=== PATIENT | female | born 1985 | race Caucasian/White ===

== ENCOUNTER 2023-04-01 16:31 | Emergency (ER) | payer BC ==
[2023-04-01 19:35] LABS: SARS-CoV-2 Antigen Rapid Res Negative (Negative)
--- NOTE | 2023-04-01 20:38 | ER ---
Nurse's Notes [facility] Name: Natasha Martino Age: 38 yrs Sex: Female : 1985 Arrival Date: 04/01/2023 Time: 16:31 Bed IW4 Private MD: Diagnosis: Cough;Otitis media, unspecified, bilateral Presentation: 04/01 17:45 Chief complaint: Patient states: Cough, SOB, vomiting, Nausea \T\ sore throat for the iw past 4 days. Coronavirus screen: Vaccine status: Patient reports receiving the 2nd dose of the covid vaccine. Date January 21, 2022 Client denies travel out of the [place] in the last 14 days. Client presents with at least one sign or symptom that may indicate coronavirus-19. Standard/surgical mask placed on the client. Ebola Screen: No symptoms or risks identified at this time. Initial Sepsis Screen: Does the patient meet any 2 criteria? No. Patient's initial sepsis screen is negative. Does the patient have a suspected source of infection? No. Patient's initial sepsis screen is negative. Risk Assessment: Do you want to hurt yourself or someone else? Patient reports no desire to harm self or others. Onset of symptoms was March 27, 2023. 17:45 Method Of Arrival: Ambulatory iw 17:45 Acuity: RAMANA 4 iw - Immunization history:: Adult Immunizations up to date. - Social history:: Smoking status: unknown. Screenin:30 [facility] ED Fall Risk Assessment (Adult) History of falling in the last 3 months, pf1 including since admission No falls in past 3 months (0 pts) Confusion or Disorientation No (0 pts) Intoxicated or Sedated No (0 pts) Impaired Gait No (0 pts) Mobility Assist Device Used No (0 pt) Altered Elimination No (0 pt) Score/Fall Risk Level 0 - 2 = Low Risk Oriented to surroundings, Maintained a safe environment, Educated pt \T\ family on fall prevention, incl call for assistance when getting out of bed, Assessed \T\ reinforced patient's understanding of fall precautions, Provided non-skid footwear, Hourly rounding (assess needs \T\ fall precautionary measures) done, Used ambulatory aids as needed (educated on \T\ assisted with), Used gait belt as appropriate. 19:30 Abuse screen: Denies threats or abuse. Nutritional screening: No deficits noted. pf1 Tuberculosis screening: No symptoms or risk factors identified. Assessment: 19:30 General: Appears in no apparent distress. comfortable, well groomed, well developed, pf1 Behavior is calm, cooperative, appropriate for age, quiet. 19:30 Pain: Complains of pain in sore throat. Neuro: No deficits noted. Level of pf1 Consciousness is awake, alert, obeys commands, Oriented to person, place, time, situation. Cardiovascular: Reports nausea, shortness of breath, vomiting, Capillary refill < 3 seconds Patient's skin is warm and dry. Respiratory: Reports shortness of breath cough that is Airway is patent Respiratory effort is even, unlabored, Respiratory pattern is regular, symmetrical, Breath sounds are clear bilaterally. GI: Reports nausea, vomiting. : No deficits noted. No signs and/or symptoms were reported regarding the genitourinary system. EENT: Reports pain in sore throat. Derm: No deficits noted. No signs and/or symptoms reported regarding the dermatologic system. Vital Signs: 17:45 BP 112 / 86; Pulse 81; Resp 20; Temp 98.4; Pulse Ox 100% on R/A; iw 20:00 BP 118 / 72; Pulse 75; Resp 18; Pulse Ox 99% on R/A; pf1 ED Course: 16:43 Patient arrived in ED. am2 17:18 Ricardo Cosme PA is PHCP. cp 17:18 Ricardo García MD is Attending Physician. cp 17:48 Triage completed. iw 18:53 SARS RAPID Sent. os 18:53 Influenza Screen (a \T\ B) Sent. os 18:53 Strep Sent. os 19:00 Patient has correct armband on for positive identification. pf1 19:00 Arm band placed on right wrist. pf1 20:48 Patient did not have IV access during this emergency room visit. pf1 20:48 No provider procedures requiring assistance completed. pf1 Administered Medications: 18:52 Drug: Tessalon Perle PO 200 mg Route: PO; os 20:03 Follow up: Response: No adverse reaction os 18:53 Drug: Ondansetron PO 4 mg Route: PO; os 20:03 Follow up: Response: No adverse reaction os Medication: 20:00 VIS not applicable for this client. pf1 Outcome: 20:37 Discharge ordered by . cp 20:48 Discharged to home ambulatory, with family. pf1 20:48 Condition: improved 20:48 Discharge instructions given to patient, Instructed on discharge instructions, follow up and referral plans. Demonstrated understanding of instructions, follow-up care, medications, Prescriptions given X 4. 20:49 Patient left the ED. pf1 Signatures: Sienna Pearson RN RN iw Ricardo Cosme PA PA cp Moreno, Amanda am2 Lauren Leach RN RN pf1 Tuan Easton RN RN os Corrections: (The following items were deleted from the chart) 04/02 05:37 05:37 Patient did not have IV access during this emergency room visit. pf1 pf1
--- NOTE | 2023-04-01 20:38 | EDPHYS ---
Physician Documentation [facility] Name: Natasha Martino Age: 38 yrs Sex: Female : 1985 Arrival Date: 04/01/2023 Time: 16:31 Bed IW4 Private MD: ED Physician Ricardo García HPI: 04/01 18:15 This 38 yrs old Female presents to ER via Ambulatory with complaints of Breathing cp Difficulty, Cough, Nausea. 18:15 The patient has shortness of breath with light activity. Onset: The symptoms/episode cp began/occurred 4 day(s) ago. Associated signs and symptoms: Pertinent positives: non-productive cough, sore throat. - Immunization history:: Adult Immunizations up to date. - Social history:: Smoking status: unknown. ROS: 18:20 Constitutional: Negative for fever, poor PO intake. cp 18:20 Eyes: Negative for injury, pain, redness, and discharge. cp 18:20 ENT: Positive for ear pain, sore throat. 18:20 Respiratory: Positive for cough, with no reported sputum, shortness of breath, on exertion. 18:20 All other systems are negative. Vital Signs: 17:45 BP 112 / 86; Pulse 81; Resp 20; Temp 98.4; Pulse Ox 100% on R/A; iw 20:00 BP 118 / 72; Pulse 75; Resp 18; Pulse Ox 99% on R/A; pf1 MDM: 17:50 Patient medically screened. [facility] 04/01 17:29 Order name: Strep; Complete Time: 20:11 04/01 17:29 Order name: Influenza Screen (a \T\ B); Complete Time: 20:11 04/01 17:29 Order name: SARS RAPID; Complete Time: 20:11 04/01 19:17 Order name: Throat Culture; Complete Time: 20:11 EDMS Administered Medications: 18:52 Drug: Tessalon Perle PO 200 mg Route: PO; os 20:03 Follow up: Response: No adverse reaction os 18:53 Drug: Ondansetron PO 4 mg Route: PO; os 20:03 Follow up: Response: No adverse reaction os Disposition Summary: 04/01/23 20:37 Discharge Ordered Location: Home cp Problem: new cp Symptoms: have improved cp Condition: Stable cp Diagnosis - Cough cp - Otitis media, unspecified, bilateral cp Followup: cp - With: Private Physician - When: 2 - 3 days - Reason: Recheck today's complaints Discharge Instructions: - Discharge Summary Sheet cp - Otitis Media, Adult cp - Cough, Adult cp Forms: - Medication Reconciliation Form cp - Thank You Letter cp - Antibiotic Education cp - Prescription Opioid Use cp Prescriptions: - Bromfed DM 2-30-10 mg/5 mL Oral syrup - administer 10 milliliter by ORAL route every 4-6 hours as needed for cold cp symptoms; 180 milliliter; Refills: 0, Product Selection Permitted - albuterol sulfate 90 mcg/actuation Inhalation HFA Aerosol Inhaler - inhale 2 puff by INHALATION route every 6 hours administer via ventilator; 1 cp unit; Refills: 0, Product Selection Permitted - Zofran 4 mg Oral Tablet - take 1 tablet by ORAL route every 12 hours As needed; 10 tablet; Refills: 0, cp Product Selection Permitted - Zithromax Z-Petey 250 mg Oral Tablet - take 1 tablet by ORAL route as directed for 5 days Day 1 - take two (2) tablets cp one time. Day 2, 3, 4 , 5 take one (1) tablet once daily.; 6 tablet; Refills: 0, Product Selection Permitted Signatures: Dispatcher [employer] EDRicardo Child MD MD cha Page, Corey, PA PA cp Lauren Leach RN RN pf1 Tuan Easton RN RN os
[2023-04-01 21:16] VITALS: BP 112/86; TEMP 98.4; O2SAT 100
== END 2023-04-01 20:49 | disposition home or self-care (01) ==
LOC: ER 16:31
DX: R05.9 Cough, unspecified (principal); H66.93 Otitis media, unspecified, bilateral; Z20.822 Contact with and (suspected) exposure to COVID-19
CPT/HCPCS: 36415; 87070; 87081; 87804; 87811; 99283

== ENCOUNTER → 2023-10-05 | Emergency (ER) | payer BC ==
--- OUTSIDE RECORDS SUMMARY | 2023-10-05 22:58 | XMS REPORT | Continuity of Care Document ---
Author Name Unknown Address [address] [facility]. [address] thconnect Address [address] [facility] 1 [address] [place] [address] Care Team Providers Care Freight Broker Name Role Phone System, Pcp Not In Primary Care Physician PETER Lyn Attending Clinician PETER Lyn Attending Clinician Tabby kate Doctor Unassigned, [place] Attending Clinician U Jonas Laird Attending Clinician Unavailable Payers Payer Name Policy Type Policy Number Effective Date Expirati on Date Source [facility] [id number] 2022 00:00:00 Allergies, Adverse Reactions, Alerts Allergy Name Allergy Type Status Severity Reaction(s) Onset Date Inactive Date Treating Clinician Comments Source NO KNOWN ALLERGIE S Drug Class Active [facility] Social History Social Habit Start Date Stop Date Quantity Comments Source [facility] Alcohol intake 2023-08-10 00:00:00 2023-08-10 00:00:00 Current drinker of alcohol (finding) [facility] History of Social function 2023-08-10 00:00:00 2023-08-10 00:00:00 [facility] Tobacco use and exposure 2023-06-08 00:00:00 2023-06-08 00:00:00 Smokeless tobacco non-user [facility] Alcohol Comment 2023-06-08 00:00:00 2023-06-08 00:00:00 occasionally [facility] Sex Assigned At 1985 00:00:00 1985 00:00:00 [facility] Smoking Status Start Date Stop Date Source Never smoked tobacco [facility] Medications Ordered Medication Name Filled Medication Name Start Date Stop Date Current Medication? Ordering Clinician Indication Dosage Frequency Signature (SIG) Comments Components Source metformin ER 500 mg 24 hr tablet 2022-10 00:00: 00 Yes [facility] metformin ER 500 mg 24 hr tablet 2022-10 00:00: 00 Yes [facility] metformin ER 500 mg 24 hr tablet 2022-10 00:00: 00 Yes [facility] metformin ER 500 mg 24 hr tablet 2022-10 00:00: 00 Yes [facility] ALBUTEROL INHALE 06-08 13:53: 17 Yes Inhale. [facility] ALBUTEROL INHALE 06-08 13:53: 17 Yes Inhale. [facility] ALBUTEROL INHALE 06-08 13:53: 17 Yes Inhale. [facility] ALBUTEROL INHALE 06-08 13:53: 17 Yes Inhale. [facility] ALBUTEROL INHALE 06-08 13:53: 17 Yes Inhale. [facility] ALBUTEROL INHALE 06-08 13:53: 17 Yes Inhale. [facility] Vital Signs Vital Name Observation Time Observation Value Comments S gregorio Systolic blood pressure 2023-08-10 20:17:00 129 mm[Hg] [facility] Diastolic blood pressure 2023-08-10 20:17:00 81 mm[Hg] [facility] Heart rate 2023-08-10 20:17:00 73 /min [facility] Body temperature 2023-08-10 20:17:00 36.67 Carissa [facility] Respiratory rate 2023-08-10 20:17:00 16 /min [facility] Body height 2023-08-10 20:17:00 152.4 cm [facility] Body weight 2023-08-10 20:17:00 112.401 kg [facility] BMI 2023-08-10 20:17:00 48.40 kg/m2 [facility] Oxygen saturation in Arterial blood by Pulse oximetry 2023-08-10 20:17:00 97 /min [facility] Systolic blood pressure 2023-06-08 18:52:00 121 mm[Hg] [facility] Diastolic blood pressure 2023-06-08 18:52:00 86 mm[Hg] [facility] Heart rate 2023-06-08 18:52:00 73 /min [facility] Body temperature 2023-06-08 18:52:00 36.72 Carissa [facility] Respiratory rate 2023-06-08 18:52:00 18 /min [facility] Body height 2023-06-08 18:52:00 152.4 cm [facility] Body weight 2023-06-08 18:52:00 116.438 kg [facility] BMI 2023-06-08 18:52:00 50.13 kg/m2 [facility] Procedures Procedure Date / Time Performed Performing Clinician Source EXTERNAL PROVIDER RECORDS 2023-09-07 06:01:00 Doctor Unassigned, [place] [facility] AUTHORIZATION TO RELEASE PHI TO [facility] 2023-08-10 05:01:00 Doctor Unassigned, [place] [facility] Encounters Start Date/Time End Date/Time Encounter Type Admission Type Attending Clinicians Care Facility Care Department Encounter ID Source 2022-07-07 12:50:43 Outpatient [id number] [facility] 2024-06-13 13:30:00 2024-06-13 13:30:00 Outpatient R PETER ADDISON MARISOL [facility] [id number] [facility] 2023-09-07 00:00:00 2023-09-07 00:00:00 Orders Only Doctor Unassigned, [place] [facility] [id number] [facility] 2023-08-10 16:30:00 2023-08-10 16:30:00 Office Visit Peter Addison [facility] [id number] [facility] 2023-08-10 16:30:00 2023-08-10 15:31:25 Outpatient R FOLEY-YANE S, PETER FOLEY-YANE S, PETER [facility] [id number] [facility] 2023-08-10 00:00:00 2023-08-10 00:00:00 Orders Only Doctor Unassigned, [place] [facility] [id number] [facility] 2023-06-08 13:30:00 2023-06-08 14:07:37 Office Visit Peter Addison [facility] [id number] [facility] 2023-06-08 13:30:00 2023-06-08 14:07:37 Outpatient R FOLEY-YANE S, PETER FOLEY-YANE S, PETER [facility] [id number] [facility] 2022-05-04 00:00:00 2022-05-04 00:00:00 Outpatient Jonas Castle Tin W [id number] [facility]
--- NOTE | 2023-10-05 23:49 | ER ---
Nurse's Notes [facility] Name: Natasha Martino Age: 38 yrs Sex: Female : 1985 Arrival Date: 10/05/2023 Time: 22:54 Bed IW2 Private MD: Diagnosis: Cough;Otitis media, unspecified, bilateral;Acute pharyngitis, unspecified Presentation: 10/05 23:12 Chief complaint: Patient states: Cough, congestion, and ear pain onset 1 week ago. Pt cm10 denies fevers. Coronavirus screen: Vaccine status: Patient reports receiving the 2nd dose of the covid vaccine. Client denies travel out of the [place] in the last 14 days. Ebola Screen: Patient denies travel to an Ebola-affected area in the 21 days before illness onset. No symptoms or risks identified at this time. Initial Sepsis Screen: Does the patient meet any 2 criteria? No. Patient's initial sepsis screen is negative. Does the patient have a suspected source of infection? No. Patient's initial sepsis screen is negative. Risk Assessment: Do you want to hurt yourself or someone else? Patient reports no desire to harm self or others. Onset of symptoms was October 05, 2023. 23:12 Method Of Arrival: Ambulatory cm10 23:12 Acuity: RAMANA 4 cm10 Triage Assessment: 10/06 00:07 General: Appears in no apparent distress. comfortable, Behavior is calm, cooperative. cm10 Pain: Complains of pain in left ear and right ear. EENT: Reports pain in left ear and right ear. Neuro: No deficits noted. Level of Consciousness is awake, alert, obeys commands, Oriented to person, place, time, situation, Appropriate for age. Cardiovascular: No deficits noted. Patient's skin is warm and dry. Respiratory: No deficits noted. Airway is patent Respiratory effort is even, unlabored, Respiratory pattern is regular, symmetrical. Musculoskeletal: Range of motion: intact in all extremities. 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 - Social history:: Smoking status: Patient denies any tobacco usage or history of. Screenin/29 00:08 [facility] ED Fall Risk Assessment (Adult) History of falling in the last 3 months, cm10 including since admission No falls in past 3 months (0 pts) Confusion or Disorientation No (0 pts) Intoxicated or Sedated No (0 pts) Impaired Gait No (0 pts) Mobility Assist Device Used No (0 pt) Altered Elimination No (0 pt) Score/Fall Risk Level 0 - 2 = Low Risk Oriented to surroundings, Maintained a safe environment, Hourly rounding (assess needs \T\ fall precautionary measures) done. Abuse screen: Denies threats or abuse. Denies injuries from another. Nutritional screening: No deficits noted. Tuberculosis screening: No symptoms or risk factors identified. Vital Signs: 10/05 23:12 BP 129 / 76; Pulse 81; Resp 18 S; Temp 97.7(O); Pulse Ox 98% on R/A; Weight 108.86 kg; cm10 Height 5 ft. 0 in. ; Pain 4/10; 23:12 Body Mass Index 46.87 (108.86 kg, 152.4 cm) cm10 23:12 Pain Scale: Adult cm10 ED Course: 23:06 Patient arrived in ED. gm2 23:13 Triage completed. cm10 23:14 Arm band placed on Patient placed in waiting room. cm10 23:24 Nancy Garnica PA-C is PHCP. sb4 23:24 Ricardo García MD is Attending Physician. sb4 23:31 PHCP role handed off by Nancy Garnica PA-C cp 23:31 Ricardo Cosme PA is PHCP. cp 10/06 00:08 Patient has correct armband on for positive identification. Provided Education on: ER cm10 process and procedures. . 00:09 No provider procedures requiring assistance completed. Patient did not have IV access cm10 during this emergency room visit. Administered Medications: No medications were administered Medication: 00:08 VIS not applicable for this client. cm10 Outcome: 10/05 23:49 Discharge ordered by . cp 10/06 00:09 Discharged to home ambulatory, cm10 Condition: good Discharge instructions given to patient, Instructed on discharge instructions, follow up and referral plans. medication usage, Demonstrated understanding of instructions, follow-up care, medications, Prescriptions given X 3, 00:09 Patient left the ED. cm10 Signatures: Ricardo Cosme PA PA cp Brown, Sophia, PA-C PA-C sb4 Josi Rene, RN RN cm10 Allison Brannon 2
--- NOTE | 2023-10-05 23:49 | EDPHYS ---
Physician Documentation [facility] Name: Natasha Martino Age: 38 yrs Sex: Female : 1985 Arrival Date: 10/05/2023 Time: 22:54 Bed IW2 Private MD: ED Physician Ricardo García HPI: 10/05 23:39 This 38 yrs old Female presents to ER via Ambulatory with complaints of Ear Pain, cp Cough, Congestion. 23:39 The patient presents with pain, that is acute. The complaints affect the right ear and cp left ear. Associated signs and symptoms: Pertinent positives: cough, congestion, sore throat with symptoms times 1 week, rhinorrhea, Pertinent negatives: fever, shortness of breath, vomiting, diarrhea. Severity of symptoms: in the emergency department the symptoms are unchanged despite home interventions. 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 - Social history:: Smoking status: Patient denies any tobacco usage or history of. ROS: 23:40 Constitutional: Negative for body aches, chills, fever, poor PO intake, cp 23:40 Eyes: Negative for injury, pain, redness, and discharge, cp 23:40 ENT: Positive for ear pain, sinus congestion, sinus pain, sore throat, Negative for drainage from ear(s), difficulty swallowing, difficulty handling secretions, 23:40 Cardiovascular: Negative for chest pain, 23:40 Respiratory: Positive for cough, Negative for shortness of breath, wheezing, 23:40 Abdomen/GI: Negative for abdominal pain, vomiting, diarrhea, constipation, 23:40 Skin: Negative for rash, 23:40 Neuro: Negative for headache, 23:40 All other systems are negative, Exam: 23:45 Constitutional: The patient appears in no acute distress, alert, awake, non-toxic, well cp developed, well nourished, 23:45 Head/Face: Normocephalic, atraumatic. cp 23:45 Eyes: Periorbital structures: appear normal, Conjunctiva: normal, no exudate, no injection, Lids and lashes: appear normal, bilaterally, 23:45 ENT: External ear(s): are unremarkable, Ear canal(s): are normal, clear, TM's: bulging, is not appreciated, bilaterally, erythema, that is moderate, bilaterally, Nose: nasal drainage, that is minimal, Mouth: Lips: moist, Oral mucosa: moist, Posterior pharynx: Airway: no evidence of obstruction, patent, swelling, is not appreciated, erythema, that is mild, exudate, is not appreciated, 23:45 Neck: ROM/movement: is normal, is supple, without pain, no range of motions limitations, no meningismus, 23:45 Chest/axilla: Inspection: normal, 23:45 Cardiovascular: Rate: normal, Rhythm: regular, cp 23:45 Respiratory: the patient does not display signs of respiratory distress, Respirations: cp normal, no use of accessory muscles, no retractions, labored breathing, is not present, Breath sounds: stridor, is not appreciated, + upper airway congestion. wheezing: is not appreciated, 23:45 Abdomen/GI: Exam negative for discomfort, distension, Inspection: abdomen appears normal, 23:45 Neuro: Orientation: to person, place \T\ time. Mentation: is normal, Vital Signs: 23:12 BP 129 / 76; Pulse 81; Resp 18 S; Temp 97.7(O); Pulse Ox 98% on R/A; Weight 108.86 kg; cm10 Height 5 ft. 0 in. ; Pain 4/10; 23:12 Body Mass Index 46.87 (108.86 kg, 152.4 cm) cm10 23:12 Pain Scale: Adult cm10 MDM: 23:24 Patient medically screened. sb4 23:40 Differential diagnosis: otitis media, otitis externa, ruptured TM, cerumen impaction, cp strep throat, pneumonia, influenza. 23:49 Data reviewed: vital signs, nurses notes, and as a result, I will discharge patient. cp 23:49 Counseling: I had a detailed discussion with the patient and/or guardian regarding the cp historical points, exam findings, and any diagnostic results supporting the discharge/admit diagnosis, the need for outpatient follow up, a family practitioner, to return to the emergency department if symptoms worsen or persist or if there are any questions or concerns that arise at home. Administered Medications: No medications were administered Disposition Summary: 10/05/23 23:49 Discharge Ordered Notes: Location: Home cp Problem: new cp Symptoms: are unchanged cp Condition: Stable cp Diagnosis - Cough cp - Otitis media, unspecified, bilateral cp - Acute pharyngitis, unspecified cp Followup: cp - With: Private Physician - When: 2 - 3 days - Reason: Worsening of condition Discharge Instructions: - Discharge Summary Sheet cp - Otitis Media, Adult cp - Sore Throat cp - Cool Mist Vaporizer cp - Cough, Adult cp Forms: - Medication Reconciliation Form cp - Thank You Letter cp - Antibiotic Education cp - Prescription Opioid Use cp - Patient Portal Instructions cp - Leadership Thank You Letter cp Prescriptions: - Bromfed DM 2-30-10 mg/5 mL Oral syrup - administer 10 milliliter ORAL route every 6 hours as needed for cold symptoms; cp 240 milliliter; Refills: 0, Product Selection Permitted - Zithromax Z-Petey 250 mg Oral Tablet - take 1 tablet ORAL route as directed for 5 days Day 1 - take two (2) tablets cp one time. Day 2, 3, 4 , 5 take one (1) tablet once daily.; 6 tablet; Refills: 0, Product Selection Permitted - Medrol (Petey) 4 mg Oral Tablets, Dose Pack - take 1 tablet ORAL route as directed - follow package instructions; 1 packet; cp Refills: 0, Product Selection Permitted Signatures: Ricardo Cosme PA PA cp Brown, Sophia, PA-C PAZelalem sb4 Josi Rene, RN RN cm10 Corrections: (The following items were deleted from the chart) 10/06 23:55 10/05 23:30 Differential diagnosis: otitis media, otitis externa, ruptured TM, cerumen cp impaction, strep throat, pneumonia, influenza cp
[2023-10-06 06:19] VITALS: BP 129/76; TEMP 97.7; O2SAT 98
== END ==
LOC: ER 22:54
DX: R05.9 Cough, unspecified (principal); H66.93 Otitis media, unspecified, bilateral; J02.9 Acute pharyngitis, unspecified
CPT/HCPCS: 99283

== ENCOUNTER 2024-07-27 22:42 | Emergency (ER) | payer BC ==
--- OUTSIDE RECORDS SUMMARY | 2024-07-27 22:48 | XMS REPORT | Continuity of Care Document ---
Author Name Unknown Address [address] [facility]. [address] th[address] Address [address] [facility] 1 [address] [place] [address] Care Team Providers Care Litigation Attorney Name Role Phone Pcp, Patient Does Not Have A Primary Care Physic tenzin PETER FRIEDMAN Attending Clinician PETER Galicia Attending Clinician Peter Galicia MD Attending Clinician [phone], [facility] Attending Clinician Unavailable Doctor Unassigned, Tullos Attending Clinician U Jonas Laird Attending Clinician Unavailable Payers Payer Name Policy Type Policy Number Effective Date Expirati on Date Source Allergies, Adverse Reactions, Alerts Allergy Name Allergy Type Status Severity Reaction(s) Onset Date Inactive Date Treating Clinician Comments Source NO KNOWN ALLERGIE S Drug Class Active [facility] Social History Social Habit Start Date Stop Date Quantity Comments Source [facility] Alcoholic beverage intake 2024-06-13 00:00:00 2024-06-13 00:00:00 Current drinker of alcohol (finding) [facility] History of Social function 2024-06-11 00:00:00 2024-06-11 00:00:00 [facility] Alcohol intake 2023-08-10 00:00:00 2023-08-10 00:00:00 Current drinker of alcohol (finding) [facility] Tobacco use and exposure 2023-06-08 00:00:00 2023-06-08 00:00:00 Smokeless tobacco non-user [facility] Alcohol Comment 2023-06-08 00:00:00 2023-06-08 00:00:00 occasionally [facility] Sex assigned at 1985 00:00:00 1985 00:00:00 [facility] Smoking Status Start Date Stop Date Source Never smoked tobacco [facility] Medications Ordered Medication Name Filled Medication Name Start Date Stop Date Current Medication? Ordering Clinician Indication Dosage Frequency Signature (SIG) Comments Components Source metformin ER 500 mg 24 hr tablet 2022-10 00:00: 00 06-13 00:00 :00 No [facility] ALBUTEROL INHALE 06-08 13:53: 17 Yes Inhale. [facility] Vital Signs Vital Name Observation Time Observation Value Comments S gregorio Systolic blood pressure 2024-06-13 18:38:00 114 mm[Hg] [facility] Diastolic blood pressure 2024-06-13 18:38:00 89 mm[Hg] [facility] Heart rate 2024-06-13 18:38:00 82 /min Un[facility] Respiratory rate 2024-06-13 18:38:00 18 /min [facility] Body height 2024-06-13 18:38:00 152.4 cm [facility] Body weight 2024-06-13 18:38:00 117.482 kg [facility] BMI 2024-06-13 18:38:00 50.58 kg/m2 [facility] Systolic blood pressure 2023-08-10 20:17:00 129 mm[Hg] [facility] Diastolic blood pressure 2023-08-10 20:17:00 81 mm[Hg] [facility] Heart rate 2023-08-10 20:17:00 73 /min Unive [facility] Body temperature 2023-08-10 20:17:00 36.67 Carissa [facility] Respiratory rate 2023-08-10 20:17:00 16 /min [facility] Body height 2023-08-10 20:17:00 152.4 cm [facility] Body weight 2023-08-10 20:17:00 112.401 kg [facility] BMI 2023-08-10 20:17:00 48.40 kg/m2 [facility] Oxygen saturation in Arterial blood by Pulse oximetry 2023-08-10 20:17:00 97 /min [facility] Systolic blood pressure 2023-06-08 18:52:00 121 mm[Hg] [facility] Diastolic blood pressure 2023-06-08 18:52:00 86 mm[Hg] [facility] Heart rate 2023-06-08 18:52:00 73 /min [facility] Body temperature 2023-06-08 18:52:00 36.72 Carissa [facility] Respiratory rate 2023-06-08 18:52:00 18 /min [facility] Body height 2023-06-08 18:52:00 152.4 cm [facility] Body weight 2023-06-08 18:52:00 116.438 kg [facility] BMI 2023-06-08 18:52:00 50.13 kg/m2 [facility] Procedures Procedure Date / Time Performed Performing Clinician Source EXTERNAL PROVIDER RECORDS 2023-09-07 06:01:00 Doctor Unassigned, Tullos [facility] AUTHORIZATION TO RELEASE PHI TO [facility] 2023-08-10 05:01:00 Doctor Unassigned, Tullos [facility] Encounters Start Date/Time End Date/Time Encounter Type Admission Type Attending Clinicians Care Facility Care Department Encounter ID Source 2022-07-07 12:50:43 Outpatient CHW CHW [id number] [facility] 2024-06-24 00:00:00 2024-06-24 13:42:24 Patient Secure Msg Peter Addison [facility] [id number] [id number] [id number] [facility] 2024-06-13 14:15:00 2024-06-13 14:30:00 Sole Tier Visit 2, [facility] Peter Addison 2, Adc Lab [facility] [id number] 350.1.13.10 [id number] [id number] [facility] 2024-06-13 13:30:00 2024-06-13 13:58:39 Outpatient R FOLEY-YANE S, PETER FOLEY-YANE S, PETER [facility] [id number] [facility] 2024-06-13 13:30:00 2024-06-13 13:58:39 Office Visit Sergio sZhanePeter [facility] [id number] [id number] [id number] [id number] [facility] 2023-09-07 00:00:00 2023-09-07 00:00:00 Orders Only Doctor Unassigned, Tullos [facility] 1.20.114 350.1.13.10 [id number] [id number] [facility] 2023-08-10 16:30:00 2023-08-10 16:30:00 Office Visit Peter Addison [facility] [id number] [id number] [id number] [id number] [facility] 2023-08-10 16:30:00 2023-08-10 15:31:25 Outpatient R FOLEY-YANE S, PETER FOLEY-YANE S, PETER [facility] [id number] [facility] 2023-08-10 00:00:00 2023-08-10 00:00:00 Orders Only Doctor Unassigned, Tullos [facility] [id number] 350.1.13.10 [id number] [id number] [facility] 2023-06-08 13:30:00 2023-06-08 14:07:37 Office Visit Peter Addison [facility] [id number] [id number] [id number] [id number] [facility] 2023-06-08 13:30:00 2023-06-08 14:07:37 Outpatient R PETER ADDISON MARISOL [facility] [id number] [facility] 2022-05-04 00:00:00 2022-05-04 00:00:00 Outpatient Jonas Castle [facility] [id number] [facility] Notes Date/Time Note Provider Source 2024-06-13 14:15:00 Images from the original note were not included. Venipuncture collection performed by clean technique on the left anticubitus. Total of 1 attempts were made. Slight pressure and a bandage/dressing were applied to the site(s). The patient experienced no complications. The following specimens were processed according to instructions and sent to [facility] laboratories per lab order on 06/13/2024 : LT BLUE SST 2 RED 1 LAV PPT DK GREEN (LiHep) DK GREEN (SodH) SCHAFFER DK BLUE (K2) DK BLUE (S) ACD Blood Culture NIPT/NTD [facility]
[2024-07-27 23:42] LABS: SARS-CoV-2 Antigen CONTROL BLUE LINE VIS/BG OK; SARS-CoV-2 Antigen Rapid Res Negative (Negative)
[2024-07-27 23:46] LABS: Absolute Basophils 0.1 K/uL (0-0.5); Absolute Eosinophils 0.4 K/uL (0-0.5); Absolute Monocytes 0.5 K/uL (0.1-1.3); Absolute Neutrophil 6.6 K/uL (1.8-8.0); Basophils % 0.9 % (0-1.3); Eosinophils % 4.1 % (0-4.4); Hematocrit 37.8 % (36.0-45.0); Hemoglobin 12.4 g/dL (12.0-15.0); Lymphocytes % 21.1 % (15.3-44.8); MCH 28.7 pg (27.0-35.0); MCHC 32.9 g/dL (32.0-36.0); MCV 87.5 fL (80-100); MPV 8.3 fL (7.6-11.3); Monocytes % 5.3 % (3.3-12.3); Neutrophils % 68.6 % (41.7-73.7); Platelets 240 thou/uL (152-406); RBC Red Blood Cell Count 4.32 M/uL (3.86-4.86); Red Cell Distribution Width 15.1 % (12.1-15.2)
[2024-07-27] MEDS ORDERED: ONDANSETRON 4 MG/2 ML VIAL ONE (23:46)
[2024-07-27] MEDS ORDERED: METOCLOPRAMIDE 10 MG/2mL INJ ONE (23:46)
[2024-07-27] MEDS ORDERED: KETOROLAC 30 MG/ML INJ ONE (23:46)
[2024-07-27] MEDS ORDERED: GUAIFENESIN/DM 5 ML UCUP ONE (23:48)
[2024-07-27] MEDS ORDERED: CODEINE 30MG/APAP 300MG TAB ONE (23:48)
[2024-07-27] MEDS ORDERED: NA CHLORIDE 0.9% 2,000 ML ONE (23:49)
[2024-07-28 00:04] LABS: ALT/SGPT 26 U/L (13-56); AST/SGOT 11 U/L (15-37); Albumin 2.7 g/dL (3.4-5.0); Albumin/Globulin Ratio 0.8 (1.1-1.8); Alkaline Phosphatase 71 U/L (45-117); Anion Gap 7.9 mEq/L (5.0-15.0); BUN Blood Urea Nitrogen 17 mg/dL (7-18); Bicarbonate 29 mEq/L (21-32); Bilirubin Total 0.3 mg/dL (0.2-1.0); Globulin 3.6 g/dL (2.3-3.5); Glomerular Filtration Rate 75 ml/min (=/>90); Glucose Level 122 mg/dL (74-106); Magnesium 2.1 mg/dL (1.6-2.4); NT PRO-BNP 91 pg/mL (<125); Potassium 3.9 mEq/L (3.5-5.1); Protein, Total 6.3 g/dL (6.4-8.2); Sodium Level 138 mEq/L (136-145); Troponin High Sensitivity 3.4 pg/mL (<58.9)
[2024-07-28 00:11] LABS: Bilirubin Direct < 0.2 mg/dL (0-0.2); Bilirubin Indirect, Calculated 0.1 mg/dL (0.2-0.8)
--- NOTE | 2024-07-28 01:05 | RAD REPORT ---
EXAM: XR Chest, 1 View CLINICAL HISTORY: Chest pain. TECHNIQUE: Frontal view of the chest. COMPARISON: No relevant prior studies available. FINDINGS: Lungs: Extensive right lower lobe opacification. Pleural space: Unremarkable. No pneumothorax. Heart: Unremarkable. No cardiomegaly. Mediastinum: Unremarkable. Normal mediastinal contour. Bones/joints: Unremarkable. No acute fracture. IMPRESSION: Right lower lobe infiltrate. Electronically signed by: Sangeetha Thrasher MD 07/28/2024 01:02 AM CDT Transcribed Date/Time: 07/28/2024 1:04 AM
[2024-07-28] MEDS ORDERED: NA CHLORIDE 0.9% 50 ML ONE (03:14)
[2024-07-28] MEDS ORDERED: ALBUTEROL 2.5 MG/3 ML NEB SOL ONE (03:14)
[2024-07-28] MEDS ORDERED: CEFTRIAXONE 1000 MG/VIAL ONE (03:14)
[2024-07-28] MEDS ORDERED: AZITHROMYCIN 250 MG TAB ONE (03:14)
--- NOTE | 2024-07-28 03:56 | EDPHYS ---
Physician Documentation [facility] Name: Natasha Martino Age: 39 yrs Sex: Female : 1985 Arrival Date: 07/27/2024 Time: 22:42 Bed 8 Private MD: ED Physician Julio Reese HPI: 07/27 22:57 This 39 yrs old Female presents to ER via Unassigned with complaints of sp4 Painful Cough, Shortness Of Breath, Dizziness, Congestion. 07/28 22:12 Patient presents with 1 week of shortness of breath cough dizziness congestion and sp4 feeling unwell.. 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 - Infectious Disease History:: Denies. - Social history:: Smoking status: Patient denies any tobacco usage or history of. - Family history:: not pertinent. ROS: 07/28 22:12 Constitutional: Positive generalized weakness, cough, productive cough, shortness of sp4 breath dizziness and congestion. All other systems are negative, Exam: 22:12 Constitutional: This is a well developed, well nourished patient who is awake, alert, sp4 and in no acute distress. Head/Face: Normocephalic, atraumatic. Eyes: Pupils equal round and reactive to light, extra-ocular motions intact. Lids and lashes normal. Conjunctiva and sclera are not injected. Cornea within normal limits. Periorbital areas with no swelling, redness, or edema. ENT: Nares patent. No nasal discharge, no septal abnormalities noted. Tympanic membranes are normal and external auditory canals are clear. Oropharynx with no redness, swelling, or masses, exudates, or evidence of obstruction, uvula midline. Mucous membranes moist. Neck: Trachea midline, no thyromegaly or masses palpated, and no cervical lymphadenopathy. Supple, full range of motion without nuchal rigidity, or vertebral point tenderness. Chest/axilla: Normal chest wall appearance and motion. Nontender with no deformity. No lesions are appreciated. Cardiovascular: Regular rate and rhythm with a normal S1 and S2. No gallops, murmurs, or rubs. Normal PMI, no JVD. No pulse deficits. Respiratory: Lungs have equal breath sounds bilaterally, clear to auscultation and percussion. No rales, rhonchi or wheezes noted. No increased work of breathing, no retractions or nasal flaring. Abdomen/GI: Soft, with normal bowel sounds. No distension or tympany. No guarding or rebound. No evidence of tenderness throughout. Back: No spinal tenderness. No costovertebral tenderness. Skin: Warm, dry with normal turgor. Normal color with no rashes, no lesions, and no evidence of cellulitis. MS/ Extremity: Pulses equal, no cyanosis. Neurovascular intact. Full, normal range of motion. Neuro: Awake and alert, GCS 15, oriented to person, place, time, and situation. Cranial nerves II-XII grossly intact. Motor strength 5/5 in all extremities. Sensory grossly intact. Psych: Awake, alert, with orientation to person, place and time. Behavior, mood, and affect are within normal limits 22:15 ECG was reviewed by the Attending Physician. sp4 Vital Signs: 07/27 22:54 BP 137 / 91; Pulse 103; Resp 16; Temp 98.1(TE); Pulse Ox 96% on R/A; Weight 116.12 kg; dd2 Height 4 ft. 11 in. ; 23:40 BP 107 / 68; Pulse 104; Resp 17 S; Pulse Ox 99% on R/A; ha1 07/28 00:25 BP 115 / 51; Pulse 98; Resp 19 S; Pulse Ox 97% on R/A; ha1 01:30 BP 110 / 55; Pulse 85; Resp 17 S; Pulse Ox 94% on R/A; ha1 02:20 BP 101 / 56; Pulse 76; Resp 17 S; Pulse Ox 96% on R/A; ha1 03:16 BP 113 / 74; Pulse 83; Resp 19 S; Pulse Ox 96% on R/A; ha1 07/27 22:54 Body Mass Index 51.71 (116.12 kg, 149.86 cm) dd2 Buhl Coma Score: 22:12 Eye Response: spontaneous(4). Motor Response: obeys commands(6). Verbal Response: sp4 oriented(5). Total: 15. MDM: 07/27 22:58 Medical Screening Exam initiated sp4 07/28 22:12 Differential Diagnosis: Obstructed Airway Bronchitis Influenza Upper Respiratory sp4 Infection Sinusitis Pharyngitis Otitis Media Pneumonia. Data reviewed: vital signs, nurses notes, lab test result(s), EKG, radiologic studies, plain films. 22:14 Consideration of Admission/Observation Escalation of care including sp4 admission/observation considered. ED course: Patient has right lower lobe infiltrate on the chest x-ray. Probably consolidative pneumonia. Patient was prescribed extended course of cefdinir and Zithromax. Advised breathing treatments at home cough management and follow-up with primary care physician in 2 weeks for repeat chest x-ray to document infiltrate resolution.. 07/27 22:58 Order name: SARS RAPID; Complete Time: 00:45 sp4 07/27 22:58 Order name: Influenza Screen (a \T\ B); Complete Time: 00:45 4 07/27 23:07 Order name: Basic Metabolic Panel; Complete Time: 00:45 4 07/27 23:07 Order name: CBC with Diff; Complete Time: 00:45 sp4 07/27 23:07 Order name: LFT's; Complete Time: 00:45 sp4 07/27 23:07 Order name: Magnesium; Complete Time: 00:45 sp4 07/27 23:07 Order name: NT PRO-BNP; Complete Time: 00:45 sp4 07/27 23:07 Order name: Troponin HS; Complete Time: 00:45 4 07/27 23:07 Order name: XRAY Chest (1 view); Complete Time: 22:14 4 07/27 23:07 Order name: EKG; Complete Time: 23:08 sp4 07/27 23:07 Order name: EKG - Nurse/Tech; Complete Time: 00:06 sp4 07/27 23:07 Order name: IV Saline Lock; Complete Time: 23:32 sp4 07/27 23:07 Order name: Labs collected and sent; Complete Time: 23:32 sp4 07/27 23:07 Order name: O2 Per Protocol; Complete Time: 23:32 sp4 07/27 23:07 Order name: O2 Sat Monitoring; Complete Time: 23:32 sp4 EC/19 23:00 Rate is 70 beats/min. Rhythm is regular, Normal Sinus Rhythm. QRS [place] is Normal. [place] sp4 interval is normal. QRS interval is normal. QT interval is normal. No Q waves. T waves are Normal. No ST changes noted. Clinical impression: Normal ECG. Interpreted by me. Reviewed by me. Administered Medications: 23:45 Drug: NS 0.9% IV 1000 ml IV at 1000 ml once; to be given as a bolus over 60 minutes ha1 Route: IV; Rate: 1000 ml; Site: right antecubital; 07/28 01:30 Follow up: Response: No adverse reaction; IV Status: Completed infusion; IV Intake: ha1 1000ml 07/27 23:45 Drug: NS 0.9% IV 1000 ml IV at 1000 ml once; to be given as a bolus over 60 minutes ha1 Route: IV; Rate: 1000 ml; Site: right antecubital; 07/28 01:30 Follow up: Response: No adverse reaction; IV Status: Completed infusion; IV Intake: ha1 1000ml 07/27 23:45 Drug: Dextromethorphan-Guaifenesin PO Liquid 10 mg-100 mg/5 mL 10 ml PO once Route: PO; [facility] 07/28 00:00 Follow up: Response: No adverse reaction; Marked relief of symptoms [facility] 07/27 23:45 Drug: metoCLOPramide IVP 10 mg IVP once; over 1 to 2 minutes Route: IVP; Site: right [address]; 07/28 00:30 Follow up: Response: No adverse reaction; Marked relief of symptoms [facility] 07/27 23:47 Drug: Ketorolac IVP 30 mg IVP once Route: IVP; Site: right antecubital; [facility] 07/28 00:00 Follow up: Response: No adverse reaction; Marked relief of symptoms [facility] 07/27 23:49 Drug: Ondansetron IVP 4 mg IVP once; over 2 minutes Route: IVP; Site: right antecubital;[facility] 07/28 00:05 Follow up: Response: No adverse reaction; Marked relief of symptoms 00:05 Drug: Acetaminophen-Codeine PO (300 mg-30 mg) 2 tabs PO once; RASS on ADMIN: Combtv4, ha1 Very Agttd3, Agttd2, Rstlss1, AlertClm0, Drwsy-1, Lt Sdtn-2, Mod Sdtn-3, Dp Sdtn-4, UnArsble-5 Route: PO; 00:30 Follow up: Response: No adverse reaction; Marked relief of symptoms; Pain is decreased; ha1 RASS: Alert and Calm (0) 03:28 Drug: Rocephin - Rocephin (cefTRIAXone) IVPB 1 grams IVPB once over 30 mins; (mix in 50 ha1 mL NS) Route: IVPB; Infused Over: 30 mins; Site: right antecubital; 04:06 Follow up: Response: No adverse reaction; IV Status: Completed infusion; IV Intake: [id number] 03:28 Drug: Albuterol Inhalation 2.5 mg Inhalation once Route: Inhalation; ha1 03:40 Follow up: Response: No adverse reaction; Marked relief of symptoms ha1 03:28 Drug: AZITHromycin PO 500 mg PO once Route: PO; ha1 03:40 Follow up: Response: No adverse reaction ha1 Disposition Summary: 07/28/24 03:55 Discharge Ordered Notes: Please see your Doctor for repeat chest X ray in 2 weeks Location: Home sp4 Problem: new sp4 Symptoms: have improved sp4 Condition: Stable sp4 Diagnosis - Other pneumonia, unspecified organism sp4 - Acute right lower lung pneumonia, right lower lung consolidation sp4 Followup: sp4 - With: Private Physician - When: 7 - 10 days - Reason: Recheck today's complaints Discharge Instructions: - Discharge Summary Sheet sp4 - Community-Acquired Pneumonia, Adult sp4 Forms: - Patient Portal Instructions sp4 Prescriptions: - cefdinir 300 mg Oral capsule - take 1 capsule ORAL route every 12 hours for 10 days; 20 capsule; Refills: 0, sp4 Product Selection Permitted - dextromethorphan-guaifenesin 60-1,200 mg Oral Tablet, Extended Release 12 hr - take 1 tablet ORAL route every 12 hours PRN cough; 40 tablet; Refills: 0, sp4 Product Selection Permitted - Albuterol Sulfate 2.5 mg /3 mL (0.083 %) Inhalation Solution for Nebulization - inhale 1 unit NEBULIZATION route every 4 hours As needed Dispense with sp4 Nebulizer and Adult mask, Dispense 50 vials; 50 unit; Refills: 0, Product Selection Permitted - Zithromax Z-Petey 250 mg Oral Tablet - take 1 tablet ORAL route as directed for 5 days Day 1 - take two (2) tablets sp4 one time. Day 2, 3, 4 , 5 take one (1) tablet once daily.; 6 tablet; Refills: 0, Product Selection Permitted - ondansetron 8 mg Oral Tablet,disintegrating - take 1 tablet ORAL route every 8 hours PRN nausea; 30 tablet; Refills: 0, sp4 Product Selection Permitted Signatures: Dispatcher [employer] EDMS Yazmin Taveras RN RN ha1 Julio Reese MD MD sp4 THUAN CALDERON RN RN dd2 Mi Andino RN al5 Corrections: (The following items were deleted from the chart) 07/27 23:08 23:08 BASIC METABOLIC PANEL+C.LAB.BRZ ordered. EDMS EDMS 23:08 23:08 CBC+H.LAB.BRZ ordered. EDMS EDMS 23:08 23:08 HEPATIC FUNCTION+C.LAB.BRZ ordered. EDMS EDMS 23:08 23:08 MAGNESIUM+C.LAB.BRZ ordered. EDMS EDMS 23:08 23:08 PROBNP+C.LAB.BRZ ordered. EDMS EDMS 23:08 23:08 Troponin High Sensitivity+C.LAB.BRZ ordered. EDMS EDMS
--- NOTE | 2024-07-28 03:56 | ER ---
Nurse's Notes [facility] Name: Natasha Martino Age: 39 yrs Sex: Female : 1985 Arrival Date: 07/27/2024 Time: 22:42 Bed 8 Private MD: Diagnosis: Other pneumonia, unspecified organism;Acute right lower lung pneumonia, right lower lung consolidation Presentation: 07/27 22:54 Chief complaint: Patient states: Pt states c/o sore throat, chest pain with cough, and dd2 difficulty taking a deep breath x5-6 days. Coronavirus screen: cough unrelated to allergies, difficulty breathing, sore throat. Ebola Screen: No symptoms or risks identified at this time. Initial Sepsis Screen: Does the patient meet any 2 criteria? No. Patient's initial sepsis screen is negative. Does the patient have a suspected source of infection? No. Patient's initial sepsis screen is negative. Risk Assessment: Do you want to hurt yourself or someone else? Patient reports no desire to harm self or others. Onset of symptoms is unknown. 22:54 Method Of Arrival: Ambulatory dd2 22:54 Acuity: RAMANA 4 dd2 Triage Assessment: 22:59 General: Appears in no apparent distress. Behavior is calm, cooperative, appropriate dd2 for age. Pain: Complains of pain in throat Pain currently is 10 out of 10 on a pain scale. Respiratory: Reports shortness of breath cough that is productive, pain with cough Airway is patent Respiratory effort is even, unlabored, Respiratory pattern is regular, symmetrical, Onset: The symptoms/episode began/occurred at an unknown time. the patient has mild shortness of breath. 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 - Infectious Disease History:: Denies. - Social history:: Smoking status: Patient denies any tobacco usage or history of. - Family history:: not pertinent. Screenin:40 [facility] ED Fall Risk Assessment (Adult) History of falling in the last 3 months, ha1 including since admission No falls in past 3 months (0 pts) Confusion or Disorientation No (0 pts) Intoxicated or Sedated No (0 pts) Impaired Gait No (0 pts) Mobility Assist Device Used No (0 pt) Altered Elimination No (0 pt) Score/Fall Risk Level 0 - 2 = Low Risk Oriented to surroundings, Maintained a safe environment, Educated pt \T\ family on fall prevention, incl call for assistance when getting out of bed, Hourly rounding (assess needs \T\ fall precautionary measures) done. Abuse screen: Denies threats or abuse. Denies injuries from another. Nutritional screening: No deficits noted. Tuberculosis screening: No symptoms or risk factors identified. Assessment: 23:20 General: Appears uncomfortable, Behavior is calm, cooperative. Pain: Complains of pain ha1 in SORE THROAT Pain does not radiate. Pain currently is 7 out of 10 on a pain scale. Quality of pain is described as aching, Pain began 2-3 days ago. Neuro: Level of Consciousness is awake, alert, obeys commands, Oriented to person, place, time, situation. Cardiovascular: Reports shortness of breath, Heart tones S1 S2 present Capillary refill Patient's skin is warm and dry. Rhythm is sinus tachycardia. Respiratory: Airway is patent Respiratory effort is even, unlabored, Respiratory pattern is regular, symmetrical, Breath sounds are clear bilaterally. Respiratory: Reports shortness of breath cough that is NASAL CONGESTION. GI: Abdomen is round non-distended. : No signs and/or symptoms were reported regarding the genitourinary system. Derm: Skin is pink, warm \T\ dry. Musculoskeletal: Circulation, motion, and sensation intact. Range of motion: intact in all extremities. 07/28 00:30 Reassessment: Patient and/or family updated on plan of care and expected duration. Pain ha1 level reassessed. Patient is alert, oriented x 3, equal unlabored respirations, skin warm/dry/pink. 01:30 Reassessment: Patient and/or family updated on plan of care and expected duration. Pain ha1 level reassessed. Patient is alert, oriented x 3, equal unlabored respirations, skin warm/dry/pink. Patient denies pain at this time. Patient states feeling better. Patient states symptoms have improved. 02:30 Reassessment: Patient and/or family updated on plan of care and expected duration. Pain ha1 level reassessed. Patient is alert, oriented x 3, equal unlabored respirations, skin warm/dry/pink. Patient denies pain at this time. Patient states feeling better. Patient states symptoms have improved. 03:20 Reassessment: Patient and/or family updated on plan of care and expected duration. Pain ha1 level reassessed. Patient is alert, oriented x 3, equal unlabored respirations, skin warm/dry/pink. Patient denies pain at this time. Patient states feeling better. Patient states symptoms have improved. 04:05 Reassessment: Patient appears in no apparent distress at this time. No changes from al5 previously documented assessment. Patient and/or family updated on plan of care and expected duration. Pain level reassessed. Patient is alert, oriented x 3, equal unlabored respirations, skin warm/dry/pink. Vital Signs: 07/27 22:54 BP 137 / 91; Pulse 103; Resp 16; Temp 98.1(TE); Pulse Ox 96% on R/A; Weight 116.12 kg; dd2 Height 4 ft. 11 in. ; 23:40 BP 107 / 68; Pulse 104; Resp 17 S; Pulse Ox 99% on R/A; ha1 07/28 00:25 BP 115 / 51; Pulse 98; Resp 19 S; Pulse Ox 97% on R/A; ha1 01:30 BP 110 / 55; Pulse 85; Resp 17 S; Pulse Ox 94% on R/A; ha1 02:20 BP 101 / 56; Pulse 76; Resp 17 S; Pulse Ox 96% on R/A; ha1 03:16 BP 113 / 74; Pulse 83; Resp 19 S; Pulse Ox 96% on R/A; ha1 07/27 22:54 Body Mass Index 51.71 (116.12 kg, 149.86 cm) dd2 Achille Coma Score: 22:12 Eye Response: spontaneous(4). Motor Response: obeys commands(6). Verbal Response: sp4 oriented(5). Total: 15. ED Course: 07/27 22:49 Patient arrived in ED. im 22:57 Julio Reese MD is Attending Physician. sp4 22:59 Triage completed. dd2 22:59 Arm band placed on right wrist. Patient placed in waiting room, Patient notified of dd2 wait time. 23:02 Patient has correct armband on for positive identification. Placed in gown. Bed in low ha1 position. Call light in reach. Side rails up X 1. 23:12 Influenza Screen (a \T\ B) Sent. dd2 23:12 SARS RAPID Sent. dd2 23:29 Initial lab(s) drawn, by me, sent to lab. Inserted saline lock: 20 gauge in right vc1 antecubital area, using aseptic technique. Blood collected. Flushed with 10 mL NS. 23:57 XRAY Chest (1 view) In Process Unspecified. EDMS 07/28 03:28 Yazmin Taveras, RN is Primary Nurse. ha1 04:05 Provided Education on: discharge follow up, medications. al5 04:05 No provider procedures requiring assistance completed. IV discontinued, intact, al5 bleeding controlled, No redness/swelling at site. Pressure dressing applied. Administered Medications: 07/27 23:45 Drug: NS 0.9% IV 1000 ml IV at 1000 ml once; to be given as a bolus over 60 minutes ha1 Route: IV; Rate: 1000 ml; Site: right antecubital; 07/28 01:30 Follow up: Response: No adverse reaction; IV Status: Completed infusion; IV Intake: ha1 1000ml 07/27 23:45 Drug: NS 0.9% IV 1000 ml IV at 1000 ml once; to be given as a bolus over 60 minutes ha1 Route: IV; Rate: 1000 ml; Site: right antecubital; 07/28 01:30 Follow up: Response: No adverse reaction; IV Status: Completed infusion; IV Intake: ha1 1000ml 07/27 23:45 Drug: Dextromethorphan-Guaifenesin PO Liquid 10 mg-100 mg/5 mL 10 ml PO once Route: PO; 1 07/28 00:00 Follow up: Response: No adverse reaction; Marked relief of symptoms [facility] 07/27 23:45 Drug: metoCLOPramide IVP 10 mg IVP once; over 1 to 2 minutes Route: IVP; Site: right ha1 antecubital; 07/28 00:30 Follow up: Response: No adverse reaction; Marked relief of symptoms [facility] 07/27 23:47 Drug: Ketorolac IVP 30 mg IVP once Route: IVP; Site: right antecubital; [facility] 07/28 00:00 Follow up: Response: No adverse reaction; Marked relief of symptoms ha1 07/27 23:49 Drug: Ondansetron IVP 4 mg IVP once; over 2 minutes Route: IVP; Site: right antecubital;ha1 07/28 00:05 Follow up: Response: No adverse reaction; Marked relief of symptoms ha1 00:05 Drug: Acetaminophen-Codeine PO (300 mg-30 mg) 2 tabs PO once; RASS on ADMIN: Combtv4, ha1 Very Agttd3, Agttd2, Rstlss1, AlertClm0, Drwsy-1, Lt Sdtn-2, Mod Sdtn-3, Dp Sdtn-4, UnArsble-5 Route: PO; 00:30 Follow up: Response: No adverse reaction; Marked relief of symptoms; Pain is decreased; ha1 RASS: Alert and Calm (0) 03:28 Drug: Rocephin - Rocephin (cefTRIAXone) IVPB 1 grams IVPB once over 30 mins; (mix in 50 ha1 mL NS) Route: IVPB; Infused Over: 30 mins; Site: right antecubital; 04:06 Follow up: Response: No adverse reaction; IV Status: Completed infusion; IV Intake: 07mxlq4 03:28 Drug: Albuterol Inhalation 2.5 mg Inhalation once Route: Inhalation; ha1 03:40 Follow up: Response: No adverse reaction; Marked relief of symptoms ha1 03:28 Drug: AZITHromycin PO 500 mg PO once Route: PO; ha1 03:40 Follow up: Response: No adverse reaction ha1 Medication: 00:34 VIS not applicable for this client. ha1 Intake: 01:30 IV: 1000ml; Total: 1000ml. ha1 01:30 IV: 1000ml; Total: 2000ml. ha1 04:06 IV: 50ml; Total: 2050ml. al5 Outcome: 03:55 Discharge ordered by . sp4 04:05 Discharged to home ambulatory, al5 04:05 Condition: good 04:05 Discharge instructions given to patient, Instructed on discharge instructions, follow up and referral plans. medication usage, Demonstrated understanding of instructions, follow-up care, medications, Prescriptions given X 5 04:05 Patient left the ED. al5 Signatures: Dispatcher [facility] EDMaggy Coreas RN RN vc1 Yazmin Taveras, RN RN ha1 Julio Reese MD MD sp4 Ailyn Ahn Amanda, RN RN al5 THUAN CALDERON RN RN dd2
[2024-07-28 09:28] VITALS: TEMP 98.1
[2024-07-28 09:33] VITALS: O2SAT 96
[2024-07-28 09:34] VITALS: BP 113/74
--- NOTE | 2024-07-30 12:57 | EKG ---
Test Date: 2024-07-27 Test Time: 23:38:05 Signal Apprentice: MEASUREMENT RESULTS: Intervals: Rate: 93 AR: 128 QRSD: 76 QT: 346 QTc: 430 [place]: P: 64 AR: 128 QRS: 15 T: 51 INTERPRETIVE STATEMENTS: Normal sinus rhythm Low voltage QRS Borderline ECG No previous ECG available for comparison Electronically Signed On 07-30-24 12:51:29 CDT by Curt Thornton
== END 2024-07-28 04:05 | disposition home or self-care (01) ==
LOC: ER 22:42
DX: J18.8 Other pneumonia, unspecified organism (principal); Z11.52 Encounter for screening for COVID-19
CPT/HCPCS: 96365; 96361; 93005; 85025; 80048; 36415; 83735; 80076; 84484; 83880; 87804 ×2; 71045; 96375; 99285; 87811; J2765; J7613; J2405; J7030; J0696

== ENCOUNTER 2025-06-03 10:53 | Emergency (ER) | payer OTHER ==
--- OUTSIDE RECORDS SUMMARY | 2025-06-03 10:59 | XMS REPORT | Continuity of Care Document ---
Author Name Unknown Address [address] [facility] [address] [place] [address] [facility] Address [address] [facility] [address] [place] [address] Care Team Providers Care Broadcast News Producer Name Role Phone Pcp, Patient Does Not Have A Primary Care Physic tenzin PETER FRIEDMAN Attending Clinician PETER Galicia Attending Clinician Peter Galicia MD Attending Clinician [phone], [facility] Attending Clinician Unavailable Doctor Unassigned, Gordo Attending Clinician U Jonas Laird Attending Clinician Unavailable Payers Payer Name Policy Type Policy Number Effective Date Expirati on Date Source Allergies, Adverse Reactions, Alerts Allergy Name Allergy Type Status Severity Reaction(s) Onset Date Inactive Date Treating Clinician Comments Source NO KNOWN ALLERGIE S Drug Class Active [facility] Social History Social Habit Start Date Stop Date Quantity Comments Source [facility] Alcoholic beverage intake 2024-06-13 00:00:00 2024-06-13 00:00:00 Current drinker of alcohol (finding) [facility] History of Social function 2024-06-11 00:00:00 2024-06-11 00:00:00 [facility] Alcohol intake 2023-08-10 00:00:00 2023-08-10 00:00:00 Current drinker of alcohol (finding) [facility] Tobacco use and exposure 2023-06-08 00:00:00 2023-06-08 00:00:00 Smokeless tobacco non-user [facility] Alcohol Comment 2023-06-08 00:00:00 2023-06-08 00:00:00 occasionally [facility] Sex assigned at 1985 00:00:00 1985 00:00:00 [facility] Smoking Status Start Date Stop Date Source Never smoked tobacco [facility] Medications Ordered Medication Name Filled Medication Name Start Date Stop Date Current Medication? Ordering Clinician Indication Dosage Frequency Signature (SIG) Comments Components Source metformin ER 500 mg 24 hr tablet 2022-10 00:00: 00 06-13 00:00 :00 No [facility] ALBUTEROL INHALE 06-08 13:53: 17 Yes Inhale. [facility] Vital Signs Vital Name Observation Time Observation Value Comments S ource Systolic blood pressure 2024-06-13 18:38:00 114 mm[Hg] [facility] Diastolic blood pressure 2024-06-13 18:38:00 89 mm[Hg] [facility] Heart rate 2024-06-13 18:38:00 82 /min [facility] Respiratory rate 2024-06-13 18:38:00 18 /min [facility] Body height 2024-06-13 18:38:00 152.4 cm [facility] Body weight 2024-06-13 18:38:00 117.482 kg [facility] BMI 2024-06-13 18:38:00 50.58 kg/m2 [facility] Systolic blood pressure 2023-08-10 20:17:00 129 mm[Hg] [facility] Diastolic blood pressure 2023-08-10 20:17:00 81 mm[Hg] [facility] Heart rate 2023-08-10 20:17:00 73 /min [facility] Body temperature 2023-08-10 20:17:00 36.67 Carissa [facility] Respiratory rate 2023-08-10 20:17:00 16 /min [facility] Body height 2023-08-10 20:17:00 152.4 cm [facility] Body weight 2023-08-10 20:17:00 112.401 kg [facility] BMI 2023-08-10 20:17:00 48.40 kg/m2 [facility] Oxygen saturation in Arterial blood by Pulse oximetry 2023-08-10 20:17:00 97 /min [facility] Systolic blood pressure 2023-06-08 18:52:00 121 mm[Hg] [facility] Diastolic blood pressure 2023-06-08 18:52:00 86 mm[Hg] [facility] Heart rate 2023-06-08 18:52:00 73 /min [facility] Body temperature 2023-06-08 18:52:00 36.72 Carissa [facility] Respiratory rate 2023-06-08 18:52:00 18 /min [facility] Body height 2023-06-08 18:52:00 152.4 cm [facility] Body weight 2023-06-08 18:52:00 116.438 kg [facility] BMI 2023-06-08 18:52:00 50.13 kg/m2 [facility] Procedures Procedure Date / Time Performed Performing Clinician Source EXTERNAL PROVIDER RECORDS 2023-09-07 06:01:00 Doctor Unassigned, Gordo [facility] AUTHORIZATION TO RELEASE PHI TO [facility] [[email or web address]] 2023-08-10 05:01:00 Doctor Unassigned, Gordo [facility] Encounters Start Date/Time End Date/Time Encounter Type Admission Type Attending Clinicians Care Facility Care Department Encounter ID Source 2022-07-07 12:50:43 Outpatient CHW CHW [id number] [facility] 2024-06-24 00:00:00 2024-06-24 13:42:24 Patient Secure Msg Peter Addison [facility] [id number] 350.1.13.10 [id number] [id number] [facility] 2024-06-13 14:15:00 2024-06-13 14:30:00 Sales Commissions Analyst Visit 2, [facility] Peter Addison 2, Kashif [facility] [id number] 350.1.13.10 [id number] [id number] [facility] 2024-06-13 13:30:00 2024-06-13 13:58:39 Outpatient R FOLEY-TRACEY S, PETER FOLEY-TRACEY S, PETER [facility] [id number] [facility] 2024-06-13 13:30:00 2024-06-13 13:58:39 Office Visit Omidi sZhanePeter [facility] [id number] 350.1.13.10 4.2.7.2.686 [id number] [facility] 2023-09-07 00:00:00 2023-09-07 00:00:00 Orders Only Doctor Unassigned, Gordo [facility] 1.20.114 350.1.13.10 4.2.7.2.686 [id number] [facility] 2023-08-10 16:30:00 2023-08-10 16:30:00 Office Visit Peter Addison [facility] [id number] 350.1.13.10 4.2.7.2.686 [id number] [facility] 2023-08-10 16:30:00 2023-08-10 15:31:25 Outpatient R FOLEY-TRACEY S, PETER FOLEY-TRACEY S, PETER [facility] [id number] [facility] 2023-08-10 00:00:00 2023-08-10 00:00:00 Orders Only Doctor Unassigned, Gordo [facility] [id number] 350.1.13.10 4.2.7.2.686 [id number] [facility] 2023-06-08 13:30:00 2023-06-08 14:07:37 Office Visit Peter Addison [facility] [id number] 350.1.13.10 4.2.7.2.686 [id number] [facility] 2023-06-08 13:30:00 2023-06-08 14:07:37 Outpatient R PETER ADDISON MARISOL [facility] [id number] [facility] 2022-05-04 00:00:00 2022-05-04 00:00:00 Outpatient Jonas Castle [facility] [id number] [facility] Notes Date/Time Note Provider Source 2024-06-13 14:15:00 Images from the original note were not included. Venipuncture collection performed by clean technique on the left anticubitus. Total of 1 attempts were made. Slight pressure and a bandage/dressing were applied to the site(s). The patient experienced no complications. The following specimens were processed according to instructions and sent to [facility] [[email or web address]] laboratories per lab order on 06/13/2024 : LT BLUE SST 2 RED 1 LAV PPT DK GREEN (LiHep) DK GREEN (SodH) SCHAFFER DK BLUE (K2) DK BLUE (S) ACD Blood Culture NIPT/NTD [facility]
[2025-06-03] MEDS ORDERED: KETOROLAC 30 MG/ML INJ ONE (11:35)
[2025-06-03 12:16] LABS: Urine Microscopic Reflex YN NO UMIC
--- NOTE | 2025-06-03 13:27 | RAD REPORT ---
EXAMINATION: Lumbar Spine 3 Views CLINICAL INDICATION: Back pain FINDINGS: No fracture or dislocation seen. Mild spondylosis involves the lumbar spine. Sacralization of L5
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
[2025-06-03 16:58] VITALS: BP 117/82; TEMP 97; O2SAT 100
== END 2025-06-03 13:43 | disposition home or self-care (01) ==
LOC: ER 10:53
DX: M54.50 Low back pain, unspecified (principal); V49.49XA Driver injured in collision with other motor vehicles in traffic accident, initial encounter
CPT/HCPCS: 72100; 81003; 81025; 96372; 99284